=== PATIENT | female | born 1980 ===

== ENCOUNTER 2021-06-22 19:11 | Emergency (ER) | payer BC ==
--- NOTE | 2021-06-22 20:08 | Emergency Department Report ---
ED General Adult HPI - General Chief complaint: Chest Pain Stated complaint: CHEST PAIN Time Seen by Provider: 06/22/21 19:58 Source: patient, EMS Mode of arrival: Stretcher Limitations: No Limitations - History of Present Illness Initial comments: Patient is 41 years old female with no significant past medical history. Patient presented to the ER complaining of sudden onset of chest pain, left- sided, sharp in nature with no radiation. Patient stated that her chest pain is intermittent comes and goes. She also reported a shortness of breath. She denied any fever or chills. No left-sided chest pain. Severity scale (0 -10): 0 - Related Data Allergies Allergy/AdvReac Type Severity Reaction Status Date / Time No Known Allergies Allergy Verified 06/22/21 19:57 ED Review of Systems ROS: Stated complaint: CHEST PAIN Other details as noted in HPI Comment: All other systems reviewed and negative Constitutional: denies: chills, fever Respiratory: denies: cough, shortness of breath, SOB with exertion Cardiovascular: chest pain. denies: palpitations Gastrointestinal: denies: abdominal pain, nausea, vomiting Musculoskeletal: denies: back pain Neurological: denies: headache, weakness, numbness, paresthesias ED Past Medical Hx - Past Medical History Previous Medical History?: No - Surgical History Past Surgical History?: No ED Physical Exam - General Limitations: No Limitations General appearance: alert, in no apparent distress - Head Head exam: Present: atraumatic, normocephalic, normal inspection - Eye Eye exam: Present: normal appearance - ENT ENT exam: Present: normal exam, normal orophraynx, mucous membranes moist - Neck Neck exam: Present: normal inspection, full ROM. Absent: tenderness, meningismus - Respiratory Respiratory exam: Present: normal lung sounds bilaterally - Cardiovascular Cardiovascular Exam: Present: regular rate, normal rhythm, normal heart sounds - GI/Abdominal GI/Abdominal exam: Present: soft, normal bowel sounds. Absent: distended, tenderness, guarding, rebound, rigid, organomegaly, mass, bruit, pulsatile mass, hernia - Extremities Exam Extremities exam: Present: normal inspection, full ROM, normal capillary refill. Absent: tenderness - Back Exam Back exam: Present: normal inspection, full ROM. Absent: CVA tenderness (R), CVA tenderness (L) - Neurological Exam Neurological exam: Present: alert, oriented X3, CN II-XII intact, normal gait, reflexes normal. Absent: motor sensory deficit - Psychiatric Psychiatric exam: Present: normal mood - Skin Skin exam: Present: warm, intact, normal color ED Course Vital Signs 06/22/21 06/22/21 06/22/21 19:57 21:12 21:16 Temperature 98.2 F Pulse Rate 83 72 71 Respiratory 16 18 20 Rate Blood Pressure Blood Pressure 123/82 [Left] O2 Sat by Pulse 98 100 100 Oximetry 06/22/21 06/22/21 06/22/21 21:31 21:55 22:01 Temperature Pulse Rate 67 78 77 Respiratory 19 9 L 16 Rate Blood Pressure 111/73 Blood Pressure [Left] O2 Sat by Pulse 100 99 99 Oximetry 06/22/21 06/22/21 06/22/21 22:15 22:31 22:45 Temperature Pulse Rate 76 72 70 Respiratory 17 18 17 Rate Blood Pressure Blood Pressure [Left] O2 Sat by Pulse 99 98 98 Oximetry 06/22/21 06/22/21 06/22/21 23:01 23:15 23:31 Temperature Pulse Rate 67 67 74 Respiratory 17 15 15 Rate Blood Pressure 107/66 107/66 112/72 Blood Pressure [Left] O2 Sat by Pulse 98 98 98 Oximetry ED Medical Decision Making - Lab Data Result diagrams: 06/22/21 20:21 06/22/21 20:21 - EKG Data -: EKG Interpreted by Tn EKG shows normal: sinus rhythm Rate: normal - EKG Data Interpretation: no acute changes - Radiology Data Radiology results: report reviewed - Medical Decision Making Patient is 41 years old female with no significant past medical history. Patient presented to the ER complaining of sudden onset of chest pain, left- sided, sharp in nature with no radiation. Patient stated that her chest pain is intermittent comes and goes. She also reported a shortness of breath. She denied any fever or chills. No left-sided chest pain. EKG showed no ST elevation. Labs reviewed and is unremarkable including a negative troponin x2. Chest x-ray is unremarkable. D-dimer slightly elevated however CTA chest is negative for PE or any other acute pathology. Patient received Toradol 30 mg IV and stated that it helped a lot with her pain. Patient chest pain is atypical however patient strongly advised to follow-up with her primary care physician for outpatient cardiac work-up and to return to the ER if she develop any new symptoms. Critical care attestation.: If time is entered above; I have spent that time in minutes in the direct care of this critically ill patient, excluding procedure time. ED Disposition Clinical Impression: Acute chest pain, Pleurisy Disposition: 01 HOME / SELF CARE / HOMELESS Is pt being admited?: No Condition: Stable Instructions: Chest Pain (ED), Nonspecific Chest Pain, Adult, Pleurisy Referrals: PRIMARY CARE, [Primary Care Provider] - 3-5 Days
[2021-06-22 20:32] LABS: Basophils % (Auto) 0.6 % (0.0-1.8); Eosinophils # (Auto) 0.1 K/mm3 (0.0-0.4); Eosinophils % (Auto) 1.4 % (0.0-4.3); Hematocrit 36.7 % (30.3-42.9); Hemoglobin 12.7 gm/dl (10.1-14.3); Lymphocytes # (Auto) 1.5 K/mm3 (1.2-5.4); Lymphocytes % (Auto) 21.2 % (13.4-35.0); Mean Corpuscular HGB Conc 35 % (30-34); Mean Corpuscular Volume 88 fl (79-97); Monocytes # (Auto) 0.5 K/mm3 (0.0-0.8); Monocytes % (Auto) 6.6 % (0.0-7.3); Platelet Count 284 K/mm3 (140-440); Red Blood Count 4.16 M/mm3 (3.65-5.03); Red Cell Distribution Width 12.5 % (13.2-15.2)
[2021-06-22 20:42] LABS: INR 0.91 (0.87-1.13)
[2021-06-22 20:43] LABS: Partial Thromboplastin Time 23.9 Sec. (24.2-36.6)
[2021-06-22 20:53] LABS: Blood Urea Nitrogen 9 mg/dL (7-17); Calcium 9.5 mg/dL (8.4-10.2); Hemolysis Index 39
[2021-06-22 20:55] LABS: BUN/Creatinine Ratio 18
--- NOTE | 2021-06-22 21:59 | XRay Report ---
CHEST 1 VIEW 06/22/2021 9:30 PM INDICATION / CLINICAL INFORMATION: Chest Pain. COMPARISON: None available. FINDINGS: SUPPORT DEVICES: None. HEART / MEDIASTINUM: No significant abnormality. LUNGS / PLEURA: No significant pulmonary or pleural abnormality. No pneumothorax. ADDITIONAL FINDINGS: No significant additional findings. IMPRESSION: 1. No acute findings. Signer Name: Anthony Lerner MD Signed: 06/22/2021 9:54 PM Workstation Name: [id number]
--- NOTE | 2021-06-22 22:08 | Cat Scan Report ---
CTA CHEST WITH CONTRAST INDICATION / CLINICAL INFORMATION: CHEST PAIN WITH SOB. TECHNIQUE: Axial CT images were obtained through the chest after injection of 100 cc Omni 350 IV cont rast. 3 plane MIP and/or 3D reconstructions were produced. All CT scans at this location are performe d using CT dose reduction for ALARA by means of automated exposure control. COMPARISON: None available. FINDINGS: PULMONARY EMBOLUS: None. THORACIC AORTA: No significant abnormality. HEART: No significant abnormality. CORONARY ARTERY CALCIFICATION: Absent -- None. MEDIASTINUM / LEO: No significant abnormality. PLEURA: No pleural effusion. No pneumothorax. LUNGS: No acute air space or interstitial disease. ADDITIONAL FINDINGS: None. UPPER ABDOMEN: No acute findings. SKELETAL STRUCTURES: No significant osseous abnormality. IMPRESSION: 1. No CT evidence for pulmonary embolism. 2. No acute findings. Signer Name: Anthony Lerner MD Signed: 06/22/2021 10:04 PM Workstation Name: [id number]
[2021-06-22] MEDS ORDERED: KETOROLAC 30 MG/1 ML INJ IV ONE (22:37)
[2021-06-23 01:38] VITALS: BP 123/72
--- NOTE | 2021-06-26 17:14 | Electrocardiograph Report ---
[facility] Test Date: 2021-06-22 Test Time: 20:29:54 Pat Name: RAFIA TUBBS Department: Room: Gender: F [employer]: MANSI : 1980 Requested By: ABIH REDDY Order Number: [id number] Reading MD: Justino Junior Measurements Intervals [place] Rate: 71 P: 35 NV: 146 QRS: -3 QRSD: 94 T: 61 QT: 399 QTc: 435 Interpretive Statements Sinus rhythm No previous ECG available for comparison Electronically Signed On 06-26-2021 17:13:43 EST by Justino Junior
== END 2021-06-23 01:15 | disposition home or self-care (01) ==
LOC: ED 19:11
DX: R07.9 Chest pain, unspecified (principal); R09.1 Pleurisy
CPT/HCPCS: 36415; 71045; 71275; 80048; 84484; 84703; 85025; 85379; 85610; 85730; 93005; 93010; 96374; 99285; J1885; Q9967